=== PATIENT | male | born 1985 | race African-American/Black ===

== ENCOUNTER 2025-06-07 01:27 | Emergency (ER) | payer MEDICAID ==
[~2025-06-07] VITALS: Ht 188 cm; Wt 155.8 kg
[2025-06-07 01:29] VITALS: TEMP 36.9; O2SAT 98
[2025-06-07] MEDS: LIDOCAINE 5% PATCH TOP STA (03:54)
[2025-06-07] MEDS: ACETAMINOPHEN 500MG TABLET PO ONE (03:54)
[2025-06-07] MEDS ORDERED: LIDO700A30 TP (05:02)
[2025-06-07] MEDS ORDERED: MENT1ADH TP (05:02)
[2025-06-07] MEDS ORDERED: ACET-2708 MT (05:02)
[2025-06-07] MEDS ORDERED: IBUP-2030 MT (05:02)
[2025-06-07 05:16] VITALS: BP 138/103; PULSE 64; RESP 18; O2SAT 97
== END 2025-06-07 05:20 | disposition home or self-care (01) ==
LOC: ER 01:27
DX: M50.322 Other cervical disc degeneration at C5-C6 level (principal); M25.78 Osteophyte, vertebrae; M48.02 Spinal stenosis, cervical region
CPT/HCPCS: 99284